=== PATIENT | female | born 1995 | race Caucasian/White ===

== ENCOUNTER 2018-10-29 10:17 | Emergency (ER) | payer OTHER ==
[~2018-10-29] VITALS: Ht 154.9 cm; Wt 53.8 kg
[2018-10-29 11:27] LABS: BASOPHILS # (AUTO) 0.02 x10^3/uL (0-0.1); BASOPHILS % (AUTO) 0 % (0-1); EOSINOPHILS # (AUTO) 0.09 x10^3/uL (0-0.4); EOSINOPHILS % (AUTO) 1 % (1-7); LYMPHOCYTES % (AUTO) 22 % (22-44); MD NO; MEAN CORPUSCULAR HEMOGLOBIN 28.7 pg (27.0-34.8); MEAN CORPUSCULAR HGB CONC 32.6 g/dL (32.4-35.8); MEAN CORPUSCULAR VOLUME 87.9 fL (80-100); MEAN PLATELET VOLUME 8.1 fL (7.4-10.4); MONOCYTES # (AUTO) 0.68 x10^3/uL (0.2-0.8); MONOCYTES % (AUTO) 5 % (2-9); NEUTROPHILS # (AUTO) 9.98 x10^3/uL (1.8-6.8); NEUTROPHILS % (AUTO) 73 % (42-75); PLATELET COUNT 298 x10^3/uL (130-400); RED BLOOD COUNT 5.06 x10^6/uL (3.82-5.3); RED CELL DISTRIBUTION WIDTH 13.7 % (9.6-15.2)
[2018-10-29 11:36] LABS: ALBUMIN 3.5 g/dL (3.4-5.0); ANION GAP 2 mmol/L (5-15); CALCIUM 8.8 mg/dL (8.5-10.1); CHLORIDE 114 mmol/L (98-107); CREATININE 0.87 mg/dL (0.55-1.02)
--- NOTE | 2018-10-29 12:12 | NUR ---
PT AMBULATED TO THE BATHROOM WITH STEADY GAIT.
--- NOTE | 2018-10-29 12:17 | NUR ---
PT REPORTS VAGINAL PAIN AND SWELLING SINCE TUESDAY. PT WAS SEEN AT ON TUESDAY AND WAS PUT ON ABX. PT IS ALERT, ORIENTED, WITH NAD. BOYFRIEND AT BEDSIDE.
--- NOTE | 2018-10-29 12:50 | NUR ---
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
--- NOTE | 2018-10-29 12:51 | NUR ---
urine in lab
[2018-10-29] MEDS ORDERED: LIDOCAINE-MPF 1%, 5ML ONE (12:53)
[2018-10-29 12:56] LABS: MICROSCOPIC AUTO
[2018-10-29 12:57] LABS: CULTURE INDICATED? NO
[2018-10-29] MEDS ORDERED: HYDROcodone/APAP 5/325 TABLET PO ONE (13:30)
[2018-10-29] MEDS ORDERED: HYDROcodone/APAP 5/325 TABLET ONE (13:47)
[2018-10-29 13:50] VITALS: BP 128/70
--- NOTE | 2018-10-29 13:51 | NUR ---
PT MEDICATED PER ORDER.
--- NOTE | 2018-10-29 14:14 | NUR ---
Patient given discharge instructions and they have confirmed that they understand the instructions. Patient ambulatory with steady gait.
== END 2018-10-29 14:16 | disposition home or self-care (01) ==
LOC: EDBD 10:17 → ED 12:43
DX: N75.1 Abscess of Bartholin's gland (principal); F17.200 Nicotine dependence, unspecified, uncomplicated
CPT/HCPCS: 36415; 56420; 80048; 81001; 81025; 82040; 85025; 99283

== ENCOUNTER 2018-10-31 12:27 | Emergency (ER) | payer OTHER ==
[~2018-10-31] VITALS: Ht 154.9 cm; Wt 53.0 kg
[2018-10-31 12:29] VITALS: BP 115/79
--- NOTE | 2018-10-31 12:37 | NUR ---
RECHECK WOUND [place]OLEN'S GLAND
== END 2018-10-31 13:11 | disposition home or self-care (01) ==
LOC: ED 12:57
DX: Z48.01 Encounter for change or removal of surgical wound dressing (principal)
CPT/HCPCS: 99281

== ENCOUNTER 2019-08-19 03:03 | Inpatient (IN) | payer OTHER ==
[~2019-08-19] VITALS: Ht 154.9 cm; Wt 74.1 kg
[2019-08-19] VITALS (9 sets, daily range): BP systolic 106–133; BP diastolic 71–91
[2019-08-19] MEDS ORDERED: OXYTOCIN 30U/ 0.9% NaCL 500ML 500 ML IV PRN (03:54)
[2019-08-19] MEDS ORDERED: OXYTOCIN 30U/ 0.9% NaCL 500ML 500 ML IV ONE (03:54)
[2019-08-19] MEDS ORDERED: D5%-LACTATED RINGERS 1,000 ML IV SCH (03:54)
[2019-08-19] MEDS ORDERED: LACTATED RINGERS 1,000 ML IV SCH (03:54)
[2019-08-19] MEDS ORDERED: FENTANYL/BUPIV./NS/PF 250 ML EPIDCONT SCH ×2 (03:57→06:29)
[2019-08-19] MEDS ORDERED: SODIUM CITRATE/CITRIC ACID 30 ML UDC PO PRN (04:00)
[2019-08-19] MEDS ORDERED: METOCLOPRAMIDE 5 MG/ML, 2ML IVPush PRN (04:00)
[2019-08-19] MEDS ORDERED: TERBUTALINE 1 MG/ML, 1ML SQ PRN (04:00)
[2019-08-19] MEDS ORDERED: SODIUM CHLORIDE FLUSH 10ML SYR IVF PRN (04:00)
[2019-08-19] MEDS ORDERED: TERBUTALINE 1 MG/ML, 1ML IVPush PRN (04:00)
[2019-08-19] MEDS ORDERED: ONDANSETRON 2MG/ML, 2ML IVPush PRN ×2 (04:00→06:30)
[2019-08-19] MEDS ORDERED: CALCIUM CARBONATE 500 MG TAB.CHEW PO PRN (04:00)
[2019-08-19] MEDS ORDERED: ALUMINUM/MAG/SIMETHICONE 30 ML UDC PO PRN (04:00)
[2019-08-19] MEDS ORDERED: FENTANYL PF 100 MCG/2ML ONE ×4 (04:13→15:04)
[2019-08-19] MEDS: FENTANYL PF 100 MCG/2ML IVPush PRN ×2 (04:22→05:31)
[2019-08-19 04:45] LABS: BASOPHILS # (AUTO) 0.08 x10^3/uL (0-0.1); BASOPHILS % (AUTO) 1 % (0-1); EOSINOPHILS # (AUTO) 0.03 x10^3/uL (0-0.4); EOSINOPHILS % (AUTO) 0 % (1-7); LYMPHOCYTES # (AUTO) 2.25 x10^3/uL (1-3.4); LYMPHOCYTES % (AUTO) 17 % (22-44); MD NO; MEAN CORPUSCULAR HEMOGLOBIN 23.9 pg (27.0-34.8); MEAN CORPUSCULAR HGB CONC 31.6 g/dL (32.4-35.8); MEAN CORPUSCULAR VOLUME 75.7 fL (80-100); MEAN PLATELET VOLUME 8.2 fL (7.4-10.4); MONOCYTES # (AUTO) 0.58 x10^3/uL (0.2-0.8); MONOCYTES % (AUTO) 4 % (2-9); NEUTROPHILS # (AUTO) 10.38 x10^3/uL (1.8-6.8); NEUTROPHILS % (AUTO) 78 % (42-75); PLATELET COUNT 180 x10^3/uL (130-400); RED CELL DISTRIBUTION WIDTH 14.8 % (9.6-15.2)
[2019-08-19] MEDS ORDERED: BUPIVACAINE 0.25% ONE (05:49)
[2019-08-19] MEDS ORDERED: EPHEDRINE 50 MG/ML, 1ML IVPush PRN (06:30)
[2019-08-19] MEDS ORDERED: LACTATED RINGERS 1,000 ML IVBOLUS PRN (06:30)
[2019-08-19] MEDS: LACTATED RINGERS 1,000 ML IV SCH ×2 (07:21→15:02)
[2019-08-19] MEDS ORDERED: OXYcodone/APAP 5/325MG TABLET PO PRN (10:30)
[2019-08-19] MEDS ORDERED: SIMETHICONE 80 MG CHEW TAB PO PRN (10:30)
[2019-08-19] MEDS ORDERED: ONDANSETRON 2MG/ML, 2ML IV PRN (10:30)
[2019-08-19] MEDS ORDERED: MISOPROSTOL 200 MCG TABLET PR PRN (10:30)
[2019-08-19] MEDS ORDERED: ACETAMINOPHEN 325 MG TABLET PO PRN (10:30)
[2019-08-19] MEDS: IBUPROFEN 600 MG TABLET PO PRN ×2 (13:15→20:19)
[2019-08-19] MEDS: OXYTOCIN 30U/ 0.9% NaCL 500ML 500 ML IV SCH ×2 (13:17→16:34)
[2019-08-19] MEDS ORDERED: morphine SULFATE 10 MG/ML, 1ML ONE (13:39)
[2019-08-19] MEDS ORDERED: MORPHINE SULFATE 4 MG/ML, 1ML IVPush ONE (14:00)
[2019-08-19] MEDS ORDERED: PROPOFOL 10 MG/ML, 20ML ONE (15:19)
[2019-08-19] MEDS ORDERED: MIDAZOLAM 1 MG/ML, 2ML ONE (15:19)
[2019-08-19 16:08] LABS: MEAN CORPUSCULAR HEMOGLOBIN 23.8 pg (27.0-34.8); MEAN CORPUSCULAR HGB CONC 31.2 g/dL (32.4-35.8); MEAN CORPUSCULAR VOLUME 76.4 fL (80-100); MEAN PLATELET VOLUME 7.3 fL (7.4-10.4); PLATELET COUNT 177 x10^3/uL (130-400); RED BLOOD COUNT 3.27 x10^6/uL (3.82-5.3); RED CELL DISTRIBUTION WIDTH 15.5 % (9.6-15.2)
[2019-08-19] MEDS ORDERED: PHARMACOKINETIC CONSULTATION MC ONE (16:30)
[2019-08-19] MEDS ORDERED: PHARMACOKINETIC MONITORING MC PRN (16:30)
[2019-08-19] MEDS ORDERED: GENTAMICIN PER PHARMACY MC PRN (16:30)
[2019-08-19] MEDS ORDERED: CLINDAMYCIN PMX 900MG/50ML 50 ML ONE (16:30)
[2019-08-19] MEDS ORDERED: OXYTOCIN 30U/ 0.9% NaCL 500ML 500 ML ONE (16:30)
[2019-08-19] MEDS: CLINDAMYCIN PMX 900MG/50ML 50 ML IV SCH (16:34)
[2019-08-19 16:36] LABS: ANISOCYTOSIS 1+; BASOPHILS # (AUTO) 0.01 x10^3/uL (0-0.1); BASOPHILS % (AUTO) 0 % (0-1); EOSINOPHILS % (AUTO) 0 % (1-7); LYMPHOCYTES # (AUTO) 1.58 x10^3/uL (1-3.4); LYMPHOCYTES % (AUTO) 8 % (22-44); MD MORPH REVIEW ONLY; MONOCYTES # (AUTO) 0.82 x10^3/uL (0.2-0.8); MONOCYTES % (AUTO) 4 % (2-9); NEUTROPHILS # (AUTO) 18.47 x10^3/uL (1.8-6.8); NEUTROPHILS % (AUTO) 88 % (42-75)
[2019-08-19 16:37] LABS: <PLATELET ESTIMATE> ADEQUATE; <PLT MORPHOLOGY> NORMAL PLT MORPH; HYPOCHROMIA 1+; POLYCHROMASIA 1+
[2019-08-19] MEDS: OXYcodone/APAP 5/325MG TABLET PO PRN ×2 (17:06→20:16)
[2019-08-19] MEDS: GENTAMICIN 120 MG in SODIUM CHLORIDE 0.9% 50 ML IV SCH (17:07)
[2019-08-20] VITALS (13 sets, daily range): BP systolic 90–125; BP diastolic 59–75
[2019-08-20] MEDS: CLINDAMYCIN PMX 900MG/50ML 50 ML IV SCH ×3 (00:30→16:27)
[2019-08-20] MEDS: GENTAMICIN 120 MG in SODIUM CHLORIDE 0.9% 50 ML IV SCH ×3 (03:11→18:03)
[2019-08-20] MEDS: IBUPROFEN 600 MG TABLET PO PRN ×3 (03:11→19:40)
[2019-08-20] MEDS: OXYTOCIN 30U/ 0.9% NaCL 500ML 500 ML IV SCH ×2 (05:41→16:23)
[2019-08-20 06:00] LABS: MEAN CORPUSCULAR HEMOGLOBIN 23.7 pg (27.0-34.8); MEAN CORPUSCULAR HGB CONC 30.9 g/dL (32.4-35.8); MEAN CORPUSCULAR VOLUME 76.7 fL (80-100); MEAN PLATELET VOLUME 7.7 fL (7.4-10.4); PLATELET COUNT 173 x10^3/uL (130-400); RED BLOOD COUNT 2.73 x10^6/uL (3.82-5.3)
[2019-08-20] MEDS: OXYcodone/APAP 5/325MG TABLET PO PRN ×2 (06:05→09:58)
[2019-08-20 06:06] LABS: CREATININE 0.97 mg/dL (0.55-1.02)
[2019-08-20 06:25] LABS: BASOPHILS # (AUTO) 0.04 x10^3/uL (0-0.1); BASOPHILS % (AUTO) 0 % (0-1); EOSINOPHILS # (AUTO) 0.19 x10^3/uL (0-0.4); EOSINOPHILS % (AUTO) 1 % (1-7); LYMPHOCYTES # (AUTO) 3.92 x10^3/uL (1-3.4); LYMPHOCYTES % (AUTO) 23 % (22-44); MD SCAN; MONOCYTES # (AUTO) 0.92 x10^3/uL (0.2-0.8); MONOCYTES % (AUTO) 5 % (2-9); NEUTROPHILS # (AUTO) 11.76 x10^3/uL (1.8-6.8); NEUTROPHILS % (AUTO) 70 % (42-75)
[2019-08-20] MEDS: DOCUSATE 100 MG CAPSULE PO PRN (08:09)
[2019-08-20] MEDS: FERROUS GLUCONATE 324 MG TABLET PO SCH ×2 (08:09→16:30)
[2019-08-20] MEDS: PRENATAL VIT/IRON/FA 1 EACH TABLET PO SCH (09:00)
[2019-08-20 18:25] LABS: BASOPHILS # (AUTO) 0.04 x10^3/uL (0-0.1); BASOPHILS % (AUTO) 0 % (0-1); EOSINOPHILS # (AUTO) 0.19 x10^3/uL (0-0.4); EOSINOPHILS % (AUTO) 1 % (1-7); LYMPHOCYTES # (AUTO) 3.45 x10^3/uL (1-3.4); LYMPHOCYTES % (AUTO) 23 % (22-44); MD NO; MEAN CORPUSCULAR HGB CONC 32.2 g/dL (32.4-35.8); MEAN CORPUSCULAR VOLUME 80.8 fL (80-100); MEAN PLATELET VOLUME 7.6 fL (7.4-10.4); MONOCYTES # (AUTO) 0.83 x10^3/uL (0.2-0.8); MONOCYTES % (AUTO) 5 % (2-9); NEUTROPHILS # (AUTO) 10.78 x10^3/uL (1.8-6.8); NEUTROPHILS % (AUTO) 71 % (42-75); PLATELET COUNT 174 x10^3/uL (130-400); RED BLOOD COUNT 3.56 x10^6/uL (3.82-5.3); RED CELL DISTRIBUTION WIDTH 17.1 % (9.6-15.2)
[2019-08-21] MEDS: CLINDAMYCIN PMX 900MG/50ML 50 ML IV SCH ×2 (00:12→08:15)
[2019-08-21] MEDS: OXYTOCIN 30U/ 0.9% NaCL 500ML 500 ML IV SCH (00:53)
[2019-08-21] MEDS: GENTAMICIN 120 MG in SODIUM CHLORIDE 0.9% 50 ML IV SCH ×2 (02:17→10:35)
[2019-08-21] MEDS: IBUPROFEN 600 MG TABLET PO PRN ×2 (02:17→08:14)
[2019-08-21 07:40] VITALS: BP 116/78
[2019-08-21] MEDS: DOCUSATE 100 MG CAPSULE PO PRN (08:14)
[2019-08-21] MEDS: PRENATAL VIT/IRON/FA 1 EACH TABLET PO SCH (08:14)
[2019-08-21] MEDS: FERROUS GLUCONATE 324 MG TABLET PO SCH (08:14)
[2019-08-21 13:43] VITALS: BP 117/82
[2019-08-21] MEDS ORDERED: IBUP-1222 PO (14:56)
== END 2019-08-21 15:55 | disposition home or self-care (01) | DRG 806 ==
LOC: LDOP 03:03 → LDIP 03:57 → 2NW 13:10
PROVIDERS: ADMIT Obstetrics & Gynecology; ATTEND Obstetrics & Gynecology
PROC: 10E0XZZ Delivery of Products of Conception, External Approach (ICD-10-PCS; principal; 2019-08-19)
PROC: 10D17Z9 Manual Extraction of Products of Conception, Retained, Via Natural or Artificial Opening (ICD-10-PCS; 2019-08-19)
PROC: 3E0R3BZ Introduction of Anesthetic Agent into Spinal Canal, Percutaneous Approach (ICD-10-PCS; 2019-08-19)
PROC: 00HU33Z Insertion of Infusion Device into Spinal Canal, Percutaneous Approach (ICD-10-PCS; 2019-08-19)
PROC: 30233N1 Transfusion of Nonautologous Red Blood Cells into Peripheral Vein, Percutaneous Approach (ICD-10-PCS; 2019-08-20)
DX: O77.0 Labor and delivery complicated by meconium in amniotic fluid (principal); O72.0 Third-stage hemorrhage; Z37.0 Single live birth; D62 Acute posthemorrhagic anemia; Z3A.38 38 weeks gestation of pregnancy; N85.2 Hypertrophy of uterus; O99.02 Anemia complicating childbirth; O75.89 Other specified complications of labor and delivery
CPT/HCPCS: 36415; 82565; 84520; 85025; 86592; 86850; 86900; 86923; G0378; J2250; J2704; J3010; J1580; J2270; J2590; J7120; P9016